=== PATIENT | male | born 2000 | race Caucasian/White ===

== ENCOUNTER 2025-10-05 00:43 | Emergency (ER) | payer SELFPAY ==
[2025-10-05 00:44] VITALS: BMI 40.1
[2025-10-05 00:53] VITALS: BP 144/83; PULSE 105; RESP 20; TEMP 36.9; O2SAT 96
--- NOTE | 2025-10-05 01:01 | XR_ITS ---
EXAMINATION: Lumbar spine 3 views TECHNIQUE: AP lateral: Lateral lower lumbar spine 3 views Date and time: October 05, 2025, 0102 hours INDICATIONS: Low back pain with running yesterday. FINDINGS: Lower lumbar levoscoliosis 15 degrees No lumbar fracture Moderate disc narrowing L5-S1 IMPRESSION: Moderate disc narrowing L5-S1
[2025-10-05] MEDS: HYDROcodone/APAP 5/325 TABLET 1 TAB PO (01:14)
[2025-10-05] MEDS: KETOROLAC INJ 60 MG/2 ML VIAL IM (01:15)
--- NOTE | 2025-10-05 01:33 | PD.EDBACK ---
ED Back Injury Pain RME/HPI General Chief Complaint: Back Pain/Injury Stated Complaint: LOWER BACK PAIN Time Seen by Provider: 10/05/25 01:01 Arrival date/time: 10/05/25 00:43 This is a case of 24-year-old male with no medical history came in in the emergency room due to lower back pain today patient states that he twisted his lower back 2 days ago and started to have pain worsening of the pain thus patient decided to sought consult here in the emergency room denies any numbness weakness tingling sensation incontinence to urine or stool Limitations: no limitations Related Data Previous Rx's ?Medication ?Instructions ?Recorded azithromycin 250 mg tablet See Rx Instructions .Route 10/15/19 (Zithromax Z-Herbert) .COMPLEX #6 tabs ciprofloxacin HCl 500 mg tablet 500 mg PO BID #14 tabs 07/01/23 (Cipro) dicyclomine 20 mg tablet 20 mg PO BID #14 tabs 07/01/23 metronidazole 500 mg tablet 500 mg PO BID #14 tabs 07/01/23 cephalexin 500 mg capsule 500 mg PO Q8H #30 caps 07/05/25 ibuprofen 600 mg tablet 600 mg PO Q8H PRN pain #20 tabs 07/05/25 mupirocin 2 % topical ointment 1 applic topical BID #1 tube 07/05/25 cyclobenzaprine 10 mg tablet 10 mg PO BID PRN muscle spasm #10 10/05/25 tabs hydrocodone 5 mg-acetaminophen 325 1 tab PO Q6H PRN pain #12 tabs 10/05/25 mg tablet lidocaine 5 % topical patch 1 patch topical QDAY #15 ea 10/05/25 (Lidoderm) methylprednisolone 4 mg tablets in 4 mg PO QAM #21 tabs 10/05/25 a dose pack (Medrol (Herbert)) Allergies Allergy/AdvReac Type Severity Reaction Status Date / Time No Known Allergies Allergy Verified 10/05/25 00:46 Review of Systems Review of Systems Systems Reviewed: All systems reviewed, normal except as documented Constitutional Constitutional: Reports system reviewed and no additional complaints, except as documented and Reports as per HPI ENT Ears, Nose, Mouth, and Throat: Denies neck pain Cardiovascular Cardiovascular: Reports system reviewed and no additional complaints, except as documented and Reports as per HPI Respiratory Respiratory: Reports system reviewed and no additional complaints, except as documented and Reports as per HPI Gastrointestinal Gastrointestinal: Reports system reviewed and no additional complaints, except as documented and Reports as per HPI Musculoskeletal Musculoskeletal: Reports system reviewed and no additional complaints, except as documented, Reports as per HPI, Reports back pain and Denies neck pain Neurologic Neurologic: Reports system reviewed and no additional complaints, except as documented and Reports as per HPI Past Medical History Social History SMOKING STATUS: Never smoker ED Exam General Limitations: Present no limitations General appearance: Present alert, in no apparent distress and other (Patient is awake alert oriented not in distress nontoxic looking well-hydrated well-nourished) Head Head exam: Present atraumatic, normocephalic and normal inspection Eye Eye exam: Present normal appearance, PERRL and EOMI ENT ENT exam: Present normal exam, normal oropharynx and mucous membranes moist Neck Neck exam: Present normal inspection, full ROM and trachea midline; Absent tenderness, meningismus, lymphadenopathy or thyromegaly Chest Chest inspection: Present normal inspection and symmetric chest wall rise; Absent tenderness Respiratory Respiratory exam: Present normal lung sounds bilaterally; Absent respiratory distress, wheezes, stridor, accessory muscle use or prolonged expiratory phase Cardiovascular Cardiovascular exam: Present regular rate, normal rhythm and normal heart sounds; Absent bradycardia, tachycardia, irregular rhythm, systolic murmur or diastolic murmur Abdominal Exam Abdominal exam: Present soft and normal bowel sounds; Absent distention, tenderness, guarding, rebound, rigidity, diminished bowel sounds, hyperactive bowel sounds, hypoactive bowel sounds or organomegaly Extremities Exam Extremities exam: Present normal inspection and full ROM Back Exam Back exam: Present normal inspection, full ROM, tenderness (Mild tenderness L1 L5 with ROM limited due to pain no CVA tenderness mild muscle spasm no paraspinal no paravertebral tenderness no crepitation no deformity static) and muscle spasm; Absent CVA tenderness (R), CVA tenderness (L), paraspinal tenderness, vertebral tenderness, rashes, sciatic notch tenderness (R), sciatic notch tenderness (L), straight leg raise (R) or straight leg raise (L) Neurological Exam Neurological exam: Present alert, oriented X3, CN II-XII intact, normal gait, reflexes normal and other (Awake alert oriented x 4 no focal deficit GCS 15/15 steady gait); Absent motor sensory deficit Psychiatric Psychiatric exam: Present normal affect and normal mood Skin Skin exam: Present warm, dry, intact and normal color Course Quality Measures none Orders Category Date Time Status XR lumbar spine 2-3V Stat Exams 10/05/25 01:01 Taken HYDROcodone*/APAP 5/325 [[place] 5/325] Med 10/05/25 01:07 Discontinued 1 tab PO X1 ONE Ketorolac Inj [Toradol Inj] Med 10/05/25 01:07 Discontinued 60 mg IM X1 ONE Vital Signs Vital signs: Vital Signs Temperature 98.5 F 10/05/25 00:53 Pulse Rate 105 H 10/05/25 00:53 Respiratory Rate 20 10/05/25 00:53 Blood Pressure 144/83 H 10/05/25 00:53 Pulse Oximetry (%) 96 10/05/25 00:53 Oxygen Delivery Method Room Air 10/05/25 00:53 Oxygen saturation is 96% in room air Back Pain / Injury MDM Narrative MDM Narrative:: This is a case of 24-year-old male with no medical history came in in the emergency room due to lower back pain today patient states that he twisted his lower back 2 days ago and started to have pain worsening of the pain thus patient decided to sought consult here in the emergency room denies any numbness weakness tingling sensation incontinence to urine or stoPhysical examination patient is awake alert oriented not in distress nontoxic looking noted moderate tenderness on the L1 L5 with muscle spasm no crepitation no deformity no redness no swelling no paraspinal no paravertebral tenderness with mild muscle spasm leg raise exam is normal steady gait no CVA tenderness x-ray showed no fracture no dislocation but with DDD lumbar after giving Toradol and [place] patient condition markedly improved and resolved no signs and symptoms of cauda equina patient will follow-up with PCP in 2 days for reevaluation and to be referred to neurosurgeon for DDD lumbar and pain management doctor for pain control for any worsening symptoms or any emergent concern return precaution in the ER is advised patient was discharged with comfortable condition walking with stable gait. Patient verbalized no further complains explained diagnosis and answered patient question. Patient is comfortable with the proposed management plan including the need to follow up with his/her primary care physician and any specialist if applicable Discussed patient for any urgent condition or worsening sx, He/She needed to go to emergency room immediately or call 911. Patient acknowledge the responsibility to follow up as instructed and to monitor her/his symptoms. For any persistence of the symptoms for more than 3-5 days return precaution advised. Discussed the result of the test and was given printed discharge instruction Patient data External records reviewed:: [facility] previous records Clinical information provided by:: patient Social determinants that could affect healthcare access:: none Patient has the following chronic illnesses:: none How is presenting disease/condition affected by chronic disease/condition?: no chronic disease Evaluation data The following diagnostics were reviewed and interpreted by me:: radiology exam(s) Lab and/or radiology exams considered but not ordered:: reveiwed Interpretation Summary: reviewed Medications / Prescriptions Medications or Prescriptions considered but not ordered:: given Medication administrations:: Medication Administration History Discontinued Medications Hydrocodone Bitart/Acetaminophen (Hydrocodone/Apap 5/325 Tablet) 1 tab PO X1 ONE Stop: 10/05/25 01:08 Last Admin: 10/05/25 01:14 Dose: 1 tab Documented By: Ketorolac Tromethamine (Ketorolac Inj 60 Mg/2 Ml Vial) 60 mg IM X1 ONE Stop: 10/05/25 01:08 Last Admin: 10/05/25 01:15 Dose: 60 mg Documented By: given Consultations Consultation(s) initiated? (list below): No Diagnosis Differential diagnosis back pain/injury: lumbar radiculopathy and sciatica Most likely diagnosis given after review of the tests above:: ddd lumbar Admission Indicated Admission indicated?: not indicated Explain why admission is indicated or not indicated:: not indicated Admission Request Was there a request for admission?: No Disposition Plan Disposition Plan: Discharge Discharge Attestation Discharge Attestation: The patient and all family members were given an opportunity to ask questions and understood the discharge instructions. Discharge instructions specifically effects, indications for sooner follow up or return to the emergency department, and the expected course of current diagnosis. Patient condition: Stable Discharge Plan Plan Patient Disposition: HOME (Self Care) Patient condition on transfer: Stable Prescriptions/Referrals Prescriptions/Med Rec: New hydrocodone-acetaminophen 5-325 mg tablet 1 tab PO Q6H MDD max 4 tabs per day PRN (Reason: pain) Qty: 12 0RF cyclobenzaprine 10 mg tablet 10 mg PO BID PRN (Reason: muscle spasm) Qty: 10 0RF lidocaine [Lidoderm] 5 % adhesive patch,medicated 1 patch topical QDAY Qty: 15 0RF Rx Instructions: leave on most painful area for up to 12 hrs methylprednisolone [Medrol (Herbert)] 4 mg tablets,dose pack 4 mg PO QAM Qty: 21 0RF No Action azithromycin [Zithromax Z-Herbert] 250 mg tablet See Rx Instructions .Route .COMPLEX Qty: 6 0RF Rx Instructions: Take (2) 250 mg tablets day 1 take (1) tablet days 2 through 5 ciprofloxacin HCl [Cipro] 500 mg tablet 500 mg PO BID Qty: 14 0RF metronidazole 500 mg tablet 500 mg PO BID Qty: 14 0RF dicyclomine 20 mg tablet 20 mg PO BID Qty: 14 0RF cephalexin 500 mg capsule 500 mg PO Q8H Qty: 30 0RF mupirocin 2 % ointment 1 applic topical BID Qty: 1 0RF ibuprofen 600 mg tablet 600 mg PO Q8H PRN (Reason: pain) Qty: 20 0RF Problem List Clinical Impression: Back muscle spasm, DDD (degenerative disc disease), lumbar Patient/Caregiver Discharge Instructions Education Materials: Common Spine and Disk Problems, ED Degenerative Disk Disease Additional Instructions: Follow-up with your primary care physician in 2 days for reevaluation and to be referred to neurosurgeon for further evaluation and treatment of DDD lumbar and to be referred to pain management doctor for pain control worsening symptoms or any emergent concern call 911 or go to the nearest emergency room take your medication as directed ice pack and warm compress as needed for pain no lifting no pulling no pushing more than 10 pounds he is advised Print Language: Omani Stand Alone Forms: [employer] Award Info., Patient Portal Info Letter PA/ORION Supervising Physician MARILOU/ORION Supervising Physician: Dr. Abdiel Foley
[2025-10-05] MEDS: MORPHINE SULF INJ 4 MG/ML VIAL IM (03:35)
== END 2025-10-05 03:58 | disposition home or self-care (01) ==
LOC: SERX 01:57
PROVIDERS: Emergency Provider Emergency Medicine; PCP Family Medicine
DX: M51.370 Other intervertebral disc degeneration, lumbosacral region with discogenic back pain only (principal)
CPT/HCPCS: 72100; 96372; 99283; J1885; J2270; A9270